=== PATIENT | female | born 1980 ===

== ENCOUNTER 2018-02-14 11:30 | Inpatient (IN) | payer OTHER ==
[2018-02-14 12:10] VITALS: BMI 46.9
[2018-02-14] MEDS ORDERED: AMPicillin 2 GM in Sodium Chloride 0.9% 100 ML IV ONE (12:10)
[2018-02-14] MEDS ORDERED: Betamethasone Soluspan 30 mg/5mL Inj Susp IM ONE (12:48)
[2018-02-14] MEDS: Lactated Ringer's 1,000 ML IV ONE (13:42)
--- NOTE | 2018-02-14 14:38 | OBADHP ---
Datetime: 02/14/2018 14:25 Admit Comment, IP Provider: 37 yo at 35+4 wks w/ EDC 03/17/2018 admitted for steroids for F LM and induction for severe oligohydramnios per recommendation Pt has PIH, on labetolol 2 00 TID. Pt receives her care w/ Dr. Boucher. FHT reactive. Celestone ordered. Ampicillin for GBS prophylaxis to start tonight. Induction to strart tomorrow. Plan discussed w/ Dr. Boucher. H_P dictated, "[id number]" (ES) Pelvic Type - PN: Adequate Extremities - PN: Normal Abdomen - PN: Normal Back - PN: Normal Breast - PN: Not Done Lungs - PN: Normal Heart - PN: Normal Neurologic - PN: Normal HEENT - PN: Normal General - PN: Normal FHR - Baseline A Provider: 120's Vital Signs Provider: Reviewed IP Chief Complaint: Scheduled induction of labor NICHD Variability Prov Fetus A: Moderate 6-25bpm NICHD Accel Fetus A IP Provider: 15X15 FHR Category Provider Fetus A: Category I NICHD Decel Fetus A IP Provider: None Dilatation, Provider: 0 Effacement, Provider: 0 Station, Provider: -3 Genitourinary Exam: Normal DTRs - PN: Normal IP Adm Impression: , intrauterine IP Admit Plan: Admit to unit
[2018-02-14 15:12] LABS: BASO # 0.1 K/uL (0.0-0.2); BASO % 0.7 % (0.0-2.0); EOS # 0.1 K/uL (0.0-0.7); HEMOGLOBIN 11.3 g/dL (12.0-16.0); LYMPH % 19.6 % (20.0-40.0); MEAN CORPUSCULAR HEMOGLOBIN 30.7 pg (27.0-31.0); MEAN PLATELET VOLUME 8.8 fl (7.2-11.7); MONO # 0.5 K/uL (0.0-0.8); MONO % 4.9 % (0.0-10.0); NEUT # 7.7 K/uL (1.8-7.0); NEUT % 73.8 % (50.0-75.0); NRBC % 0.1 % (0.0-0.0); RBC 3.68 Mil/uL (3.80-5.20); RED CELL DISTRIBUTION WIDTH 15.8 % (11.5-14.5); WHITE BLOOD COUNT 10.5 K/uL (4.8-10.8)
[2018-02-14 15:17] LABS: PROTHROMBIN TIME 10.7 Seconds (9.8-13.1)
[2018-02-14 15:19] LABS: PARTIAL THROMBOPLASTIN TIME 29.1 Seconds (25.6-37.1)
[2018-02-14 15:31] LABS: ALBUMIN 3.7 g/dL (3.5-5.0); BILIRUBIN,DIRECT 0.2 mg/ml (0.0-0.4); BLOOD UREA NITROGEN 6 mg/dl (7-17); CALCIUM 9.3 mg/dL (8.4-10.2); GFR NON-AFRICAN AMERICAN > 60; URIC ACID 2.3 mg/Dl (2.2-7.5)
[2018-02-14 15:34] LABS: ALT/SGPT 21 U/L (9-52); AST/SGOT 34 U/L (14-36)
--- NOTE | 2018-02-14 17:25 | OBPN ---
Datetime: 02/14/2018 17:15 IP Progress Plan Other: for second dose of steroids tomorrow IP Progress Impression Other: NST reactive and had 1st dose of steroids at 1 + pm today IP Progress Plan: Continue present management Membranes, Provider: Intact Contraction Comments Provider: irregular FHR - Baseline A Provider: 140/150 Gestation - Est Wks by US: 35+ Presentation-Admit: Vertex IP Progress Note Comment: had sono this am showing oligohydramnios and as per perintologist advised admitted for steroids and for induction GBS pos so started on IV antibiotics for prematurity and GBS coverage Pt explained the situation and understands and agreed Vital Signs Provider: Reviewed NICHD Accel Fetus A IP Provider: 10X10 NICHD Variability Prov Fetus A: Moderate 6-25bpm Dilatation, Provider: closed in office this am NICHD Decel Fetus A IP Provider: None Datetime: 02/14/2018 14:25 FHR Category Provider Fetus A: Category I Effacement, Provider: 0 Station, Provider: -3
[2018-02-14 21:38] LABS: SQUAMOUS EPITHIAL 11 /hpf (0-5); URINE BACTERIA RARE (<OCC); URINE BILIRUBIN NEGATIVE (NEGATIVE); URINE BLOOD NEGATIVE (NEGATIVE); URINE CLARITY SLIGHTY-CLOUDY (Clear); URINE COLOR YELLOW (YELLOW); URINE GLUCOSE (UA) NEG (Normal); URINE LEUKOCYTE ESTERASE SMALL Leu/uL (Negative); URINE PROTEIN NEGATIVE (NEGATIVE); URINE UROBILINOGEN 0.2-1.0 mg/dL (0.2-1.0)
[2018-02-14] MEDS: AMPicillin 1 GM in Sodium Chloride 0.9% 100 ML IV SCH (23:51)
[2018-02-14] MEDS: Lactated Ringer's 1,000 ML IV SCH (23:52)
--- NOTE | 2018-02-15 01:41 | HP ---
HISTORY OF PRESENT ILLNESS: This is a 37-year-old, G5, P3-0-1-3 at 35 weeks and 5 days with an EDC of 03/17/2018 by 9 plus week ultrasound, who was found to have severe oligohydramnios today and (Dr. Castaneda) advised for steroids and delivery. The patient denies contractions, leaking of fluids, vaginal bleeding, reports positive movement. This patient receives her care with Dr. Boucher. During this , the patient had a Pap smear that was low grade SOCORRO on 07/22/2017 and this is also complicated by the fact that she has had hypertension noted since 9 weeks and she is currently on labetalol 200 t.i.d. The patient denies headaches, changes in vision, upper abdominal pain, nausea or vomiting. All other systems reviewed and negative. GBS is positive and that was done on 02/10/2018. 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 PAST SURGICAL HISTORY: None. MEDICATIONS: Labetalol 200 t.i.d. and vitamins. ALLERGIES: NO KNOWN DRUG ALLERGIES. FAMILY HISTORY: Noncontributory. SOCIAL HISTORY: The patient denies tobacco, alcohol or illicit drug use. OBSTETRICAL HISTORY: In 2001, she underwent termination, no complications. In 2002, she underwent a vaginal delivery of a male infant, weighing 8 pounds 6 ounces. In 2004, she underwent a vaginal delivery of a female infant, weighing 7 pounds ? ounces. In 2013, she underwent a vaginal delivery of a male, weighing 8 pounds 6 ounces, no complications. GYNECOLOGICAL HISTORY: Menarche around 11 years old, regular to 45 days cycles. The patient has an abnormal Pap with low-grade SOCORRO on 07/22/2017. She denies any history of any STD's. LABORATORIES: On 07/22/2017 Pap with low-grade SOCORRO. gonorrhea and Chlamydia were negative. Blood type is B positive. Antibody screen negative. On 08/05/2017, Hemoglobin electrophoresis is normal. Rubella IgG was equivocal. RPR was nonreactive. Varicella zoster antibody was negative. HIV was nonreactive. Hepatitis B surface antigen was nonreactive. On 09/28/2017, TSH was 2.22 . Maternal serum AFP was negative. On 11/10/2017, her Pap was repeated and was low-grade SOCORRO. On 02/10/2018, group B Strep was positive. PHYSICAL EXAMINATION: GENERAL: The patient does appear comfortable, lying in the bed. VITAL SIGNS: Afebrile, vital signs are stable. HEART: Regular rate and rhythm. CHEST: Lungs clear to auscultation bilaterally. ABDOMEN: Soft, nontender, gravid. EXTREMITIES: Nontender. Deep tendon reflexes 0. Edema trace. GENITALIA: Vaginal exam deferred. Dr. Boucher documented that her cervix was closed in the office today. External monitoring: Baseline is in [id number] with moderate variability and positive accelerations. Tocodynamometer is difficult to discern, although she may be ronen irregularly. ASSESSMENT AND PLAN: This is a 37-year-old G5, P3-0-1-3 at 35 weeks and 4 days with severe oligohydramnios being admitted for steroids and delivery per recommendations of [facility]. The patient received her first dose of Celestone at 01:45 p.m. today. Ampicillin for GBS prophylaxis will start tonight and her induction will start tomorrow. heart tracing is reactive. Maria C Jurado MD MTDD
[2018-02-15] MEDS ORDERED: AMPicillin 4 GM ONE (04:05)
[2018-02-15] MEDS: AMPicillin 1 GM in Sodium Chloride 0.9% 100 ML IV SCH ×6 (04:08→23:58)
--- NOTE | 2018-02-15 08:31 | OBPN ---
Datetime: 02/15/2018 08:23 IP Procedures Other: iv steroids 2nd dose today IP Progress Plan Other: complete steroids and start induction IP Progress Impression Other: oligohydramnios IP Progress Impression: Gest. HTN/PreEclampsia/Eclampsia IP Progress Plan: Induction Membranes, Provider: Intact Contraction Comments Provider: irregular FHR - Baseline A Provider: 140's Gestation - Est Wks by US: 35+ Presentation-Admit: Cephalic IP Progress Note Comment: pt voices no complaints and BP stable no need for meds now For 2nd dose of steroids and latter start induction Vital Signs Provider: Reviewed NICHD Accel Fetus A IP Provider: 10X10 NICHD Variability Prov Fetus A: Moderate 6-25bpm NICHD Decel Fetus A IP Provider: None
[2018-02-15] MEDS ORDERED: Betamethasone Soluspan 30 mg/5mL Inj Susp IM ONE (11:00)
[2018-02-15] MEDS: Lactated Ringer's 1,000 ML IV SCH (12:57)
[2018-02-16] MEDS: AMPicillin 1 GM in Sodium Chloride 0.9% 100 ML IV SCH (04:04)
[2018-02-16] MEDS: Lactated Ringer's 1,000 ML IV SCH ×2 (04:04→15:15)
[2018-02-16] MEDS: AMPicillin 1 GM in Sodium Chloride 0.9% 100 ML IVPB SCH ×4 (09:30→21:36)
[2018-02-16] MEDS ORDERED: AMPICILLIN 3 GM ONE (14:16)
[2018-02-16] MEDS: Lactated Ringer's 1,000 ML IV ONE (14:45)
[2018-02-16] MEDS ORDERED: Fentanyl/Bupivacaine HCl 250 ML EPI ONE (14:57)
[2018-02-17] MEDS: AMPicillin 1 GM in Sodium Chloride 0.9% 100 ML IVPB SCH ×4 (01:14→12:53)
[2018-02-17] MEDS ORDERED: ePHEDrine 50 mg/ml Inj ONE (09:08)
[2018-02-17] MEDS ORDERED: Phenylephrine 10 mg/ml Inj ONE (09:08)
[2018-02-17] MEDS ORDERED: Oxytocin 30 UNIT 30 UNITS/500 ML BAG IV ONE ×2 (09:16→12:25)
[2018-02-17] MEDS ORDERED: OXYTOCIN/0.9 % NS 20 UNIT/1,000 ML BAG IV SCH (09:30)
[2018-02-17] MEDS: Lactated Ringer's 1,000 ML IV SCH (11:00)
[2018-02-17] MEDS ORDERED: Lidocaine 2% MPF (5 ml) Inj ONE (14:07)
[2018-02-17] MEDS ORDERED: Benzocaine/Menthol SPRAY TOP PRN ×2 (15:19→17:35)
[2018-02-17] MEDS ORDERED: OXYTOCIN/0.9 % NS 20 UNIT/1,000 ML BAG IV ONE ×2 (15:19→17:35)
[2018-02-17] MEDS ORDERED: Oxycodone/Acetaminophen 5/325 mg Tab PO PRN ×2 (15:19→17:35)
--- NOTE | 2018-02-17 15:19 | OBDS ---
MATERNAL INFORMATION Estimated Blood Loss (ml): 400 Other Maternal Complications: Prematurity/oligohydramnios by sono Provider Comments: Delivered a living baby boy appears AGA cried spontaneously peds in attendence Ap gar 01/09; AF clear Placenta complete and intact Mild uterine atony noted and responded well to massage and IM methergine No cervical vaginal or perineal tears Tolerated procedure well no complications LABOR SUMMARY EDC: 03/17/2018 00:00 No. Babies in Womb: 1 Attempted: No Labor Anesthesia: Epidural (Annotations: Data stored by N on behalf of user) LABOR INFORMATION Reason for Induction: Oligohydramnios Cervical Ripening Agents: Cervidil Group B Beta Strep: Positive Steroids Given: Full Course Reason Steroids Not Administered: Not Applicable MEMBRANES Membranes Rupture Method: Artificial Rupture of Membranes: 02/17/2018 08:30 Amniotic Fluid Color: Clear Amniotic Fluid Amount: Small VAGINAL DELIVERY Episiotomy: None Laceration Extension: N/A Laceration Type: None Laceration Repair: Not Applicable Sponge Count Correct: Yes Sharps Count Correct: N/A Count Comment: count correct and verified by RN CSECTION DELIVERY Primary Indication: N/A Secondary Indication: N/A CSection Incision: N/A Uterine Closure: N/A IDENTIFICATION/MEDS BABY A ID Band Number: [id number]
[2018-02-18 06:21] LABS: BASO % 0.2 % (0.0-2.0); EOS # 0.1 K/uL (0.0-0.7); EOS % 0.9 % (0.0-4.0); LYMPH # 2.4 K/uL (1.0-4.3); LYMPH % 19.7 % (20.0-40.0); MEAN CELL VOLUME 91.9 fl (81.0-99.0); MEAN CORPUSCULAR HEMOGLOBIN 30.9 pg (27.0-31.0); MEAN CORPUSCULAR HGB CONC 33.6 g/dL (33.0-37.0); MEAN PLATELET VOLUME 8.3 fl (7.2-11.7); MONO # 0.5 K/uL (0.0-0.8); MONO % 4.6 % (0.0-10.0); NEUT # 8.9 K/uL (1.8-7.0); NEUT % 74.6 % (50.0-75.0); NRBC % 0.1 % (0.0-0.0); RBC 3.57 Mil/uL (3.80-5.20); RED CELL DISTRIBUTION WIDTH 15.6 % (11.5-14.5); WHITE BLOOD COUNT 11.9 K/uL (4.8-10.8)
--- NOTE | 2018-02-18 11:53 | OBPPN ---
Datetime: 02/18/2018 11:47 PP Pain Prov: Within normal limits PP Pain Prov comment: no SOB, chest or leg pains PP Nausea Prov: Denies PP Nausea Prov comment: Voiding well PP Breasts Prov: Normal PP Lungs Prov: Normal PP Abdomen/Uterus Prov: Abnormal PP Lochia Prov: Normal PP Vulva/Perineum Prov: Normal PP CVA Tenderness Prov: Normal PP Extremities Prov: Normal PP C/S Incision Prov: Not Applicable PP Progress Prov: Normal PP Comments Phys Exam Prov: breast not engorged NT Abd soft nd fundus firm below umb NT Ext no calf tenderness PP Impression Prov: Normal progression PP Plan Prov: Continue present management PP Progress Note Prov: OOB and ambulation Continue PP care IP PP Procedures: None Vital Signs Provider PP: Reviewed
--- NOTE | 2018-02-19 10:52 | OBPPN ---
Datetime: 02/19/2018 10:40 PP Pain Prov: Within normal limits PP Breasts Prov: Normal PP Heart Prov: Normal PP Lungs Prov: Normal PP Abdomen/Uterus Prov: Normal PP Lochia Prov: Normal PP Vulva/Perineum Prov: Normal PP CVA Tenderness Prov: Normal PP Extremities Prov: Normal PP Impression Prov: Normal progression PP Progress Note Prov: Patient seen and examined by me this am. States that all is going well. Denie s depressive symptoms. Minimal lochia. Pain well controlled. Patient without difficulty . A/P: Patient PPD #2 for discharg home today --Continue Motrin for pain as needed --Patient Rubella non immune, declined MMR --Continue pelvic rest --Follow up with Dr. Boucher for evaluation Vital Signs Provider PP: Reviewed; Within Normal Limits
[2018-02-19 19:01] VITALS: BP 130/87; PULSE 87; RESP 18; TEMP 98.1; O2SAT 100
== END 2018-02-19 11:15 | disposition home or self-care (01) | DRG 372 ==
LOC: H.EROB2 11:51 → H.L&D 12:10 → H.OB/GYN 02-17 17:15
PROVIDERS: ADMIT Specialist; ATTEND Specialist
PROC: 4A1HXCZ Monitoring of Products of Conception, Cardiac Rate, External Approach (ICD-10-PCS; 2018-02-14)
PROC: 10E0XZZ Delivery of Products of Conception, External Approach (ICD-10-PCS; principal; 2018-02-17)
DX: O41.03X0 Oligohydramnios, third trimester, not applicable or unspecified (principal); O60.14X0 Preterm labor third trimester with preterm delivery third trimester, not applicable or unspecified; Z3A.35 35 weeks gestation of pregnancy; Z37.0 Single live birth; O13.4 Gestational [pregnancy-induced] hypertension without significant proteinuria, complicating childbirth